=== PATIENT | female | born 1990 | race Caucasian/White ===

== ENCOUNTER 2023-06-30 12:50 | Observation (INO) | payer OTHER ==
[~2023-06-30 12:50] MED LIST: CLONIDINE0.1 MG PO; KLONOPIN2 MG PO; NALTREXONE50 MG PO
[2023-06-30 13:17] VITALS: BP 110/69
== END 2023-06-30 16:53 | disposition home or self-care (01) | DRG 641 ==
LOC: MS2 12:50
PROVIDERS: ADMIT Anesthesiology Critical Care Medicine; ATTEND Anesthesiology Critical Care Medicine
DX: E86.0 Dehydration (principal); G24.02 Drug induced acute dystonia; F11.20 Opioid dependence, uncomplicated; T50.995A Adverse effect of other drugs, medicaments and biological substances, initial encounter